=== PATIENT | male | born 1950 | race Caucasian/White ===

== ENCOUNTER → 2017-09-27 07:34 | Outpatient (CLI) | payer MEDICARE, BC ==
[2010-04-05 11:16] VITALS: BMI 35.4
== END | disposition home or self-care (01) ==
LOC: D.RAD 09-22 09:30 → D.RT 07:34
DX: K21.9 Gastro-esophageal reflux disease without esophagitis (principal); R06.02 Shortness of breath

== ENCOUNTER → 2018-01-03 14:19 | Outpatient (CLI) | payer MEDICARE, BC ==
[2010-04-05 11:16] VITALS: BMI 35.4
[2018-01-05 09:16] LABS: IMMUNOGLOBULIN A 199 mg/dL (61-437); IMMUNOGLOBULIN G 1166 mg/dL (700-1600); IMMUNOGLOBULIN M 113 mg/dL (20-172)
[2018-01-09 21:08] LABS: IMMUNOGLOBULIN E 103 IU/mL (0-100)
== END | disposition home or self-care (01) ==
LOC: D.LABREF 14:19
PROVIDERS: Internal Medicine Pulmonary Disease
DX: J44.9 Chronic obstructive pulmonary disease, unspecified (principal)